=== PATIENT | female | born 1990 | race Caucasian/White ===

== ENCOUNTER 2017-07-01 15:40 | Emergency (ER) | payer OTHER ==
[2017-07-01 16:05] VITALS: BP 105/71
[2017-07-01] MEDS ORDERED: Sodium Chloride 0.9% 1,000 ML IV ONE (16:43)
[2017-07-01] MEDS ORDERED: HYDROmorphone 1 MG/ML Syringe IVPUSH ONE ×2 (16:43→19:39)
--- NOTE | 2017-07-01 16:50 | EDM.PDOC ---
<Pollo Montilla - Last Filed: 07/01/17 16:45> ED HPI GENERAL MEDICAL PROBLEM - General Chief Complaint: [employer] Problem Stated Complaint: SEVERE ABD PAINS, [id number] Time Seen by Provider: 07/01/17 16:40 Source of Information: Reports: Patient History Limitations: Reports: No Limitations - History of Present Illness INITIAL COMMENTS - FREE TEXT/NARRATIVE: This 27 yo female patient reports to the ED with left lower quadrant pain. The patient reports her symptoms started this afternoon at 1430. The patient reports she completed her last period about 2 weeks ago and has had increased vaginal bleeding that started today. The patient reports she has had to change her pad 2 times this afternoon. The patient reports her current pain is a 9 or 10/10 The patient reports she has had the right ovary removed and has had a previous ovarian cyst on her left. The patient has previously seen Dr. Rebollar for her left ovarian cyst. Onset: Today, Sudden Onset Date: 07/01/17 Onset Time: 14:30 Duration: Constant Location: Reports: Abdomen (LLQ) Quality: Reports: Ache, Sharp, Stabbing Severity: Severe Improves with: Reports: None Worsens with: Reports: None Associated Symptoms: Reports: No Other Symptoms Left Abdomen Pain Score (Numeric/FACES): 10 - Related Data Allergies Allergy/AdvReac Type Severity Reaction Status Date / Time Penicillins Allergy Hives Verified 07/01/17 16:02 Home Meds: Home Meds Venlafaxine [Effexor XR 24 Hr] 75 mg PO DAILY 07/01/17 [History] ED ROS GENERAL - Review of Systems Review Of Systems: ROS reveals no pertinent complaints other than HPI. ED EXAM, GI/ABD - Physical Exam Exam: See Below Exam Limited By: No Limitations General Appearance: Alert, WD/WN, Moderate Distress Eyes: Bilateral: Normal Appearance, EOMI Ears: Normal External Exam, Normal Canal, Hearing Grossly Normal, Normal TMs Nose: Normal Inspection, Normal Mucosa, No Blood Throat/Mouth: Normal Inspection, Normal Lips, Normal Teeth, Normal Gums, Normal Oropharynx, Normal Voice, No Airway Compromise Head: Atraumatic, Normocephalic Neck: Normal Inspection, Supple, Non-Tender, Full Range of Motion Respiratory/Chest: No Respiratory Distress, Lungs Clear, Normal Breath Sounds, No Accessory Muscle Use, Chest Non-Tender Cardiovascular: Normal Peripheral Pulses, Regular Rate, Rhythm, No Edema, No Gallop, No JVD, No Murmur, No Rub GI/Abdominal Exam: Normal Bowel Sounds, Soft, No Organomegaly, No Distention, No Abnormal Bruit, No Mass, Guarding, Tender (LLQ) (Female) Exam: Deferred Rectal (Female) Exam: Deferred Back Exam: Normal Inspection, Full Range of Motion, NT Extremities: Normal Inspection, Normal Range of Motion, Non-Tender, Normal Capillary Refill, No Pedal Edema Neurological: Alert, Oriented, CN II-XII Intact, Normal Cognition, Normal Gait, Normal Reflexes, No Motor/Sensory Deficits Psychiatric: Normal Affect, Normal Mood Skin Exam: Warm, Dry, Intact, Normal Color, No Rash Lymphatic: No Adenopathy Course - Vital Signs Last Recorded V/S: Last Vital Signs Temp 36.1 C 07/01/17 16:00 Pulse 85 07/01/17 16:00 Resp 16 07/01/17 16:00 BP 105/71 07/01/17 16:00 Pulse Ox 99 07/01/17 16:00 - Orders/Labs/Meds Labs: Laboratory Tests 07/01/17 07/01/17 07/01/17 Range/Units 16:32 16:32 16:32 WBC 5.8 (5.0-10.0) 10^3/uL RBC 4.51 (4.2-5.4) 10^6/uL Hgb 12.9 (12.0-16.0) g/dL Hct 37.6 (37.0-47.0) % MCV 83.4 (80-100) fL MCH 28.6 (27.0-34.0) pg MCHC 34.3 (33.0-35.0) g/dL Plt Count 156 (150-450) 10^3/uL Neut % (Auto) 56.9 (42.2-75.2) % Lymph % (Auto) 24.4 (20.5-50.1) % Posey % (Auto) 13.0 H (2-8) % Eos % (Auto) 5.2 H (1.0-3.0) % Baso % (Auto) 0.5 (0.0-1.0) % Sodium 135 (135-145) mmol/L Potassium 3.5 L (3.6-5.0) mmol/L Chloride 105 (101-111) mmol/L Carbon Dioxide 22.0 (21.0-31.0) mmol/L Anion Gap 11.5 BUN 7 (7-18) mg/dL Creatinine 0.6 (0.6-1.3) mg/dL Est Cr Clr Drug Dosing 156.02 mL/min Estimated GFR (MDRD) > 60 BUN/Creatinine Ratio 11.66 Glucose 95 (74-105) mg/dL Calcium 8.8 (8.4-10.2) mg/dl Total Bilirubin 0.8 (0.2-1.0) mg/dL AST 15 (10-42) IU/L ALT 12 (10-60) IU/L Alkaline Phosphatase 45 (42-121) IU/L Total Protein 6.7 (6.7-8.2) g/dl Albumin 4.2 (3.2-5.5) g/dl Globulin 2.5 Albumin/Globulin Ratio 1.68 HCG, Qual Negative Urine Color (YELLOW) Urine Appearance (CLEAR) Urine pH (5.0-9.0) Ur Specific Half Way (1.005-1.030) Urine Protein (NEGATIVE) Urine Glucose (UA) (NEGATIVE) Urine Ketones (NEGATIVE) Urine Occult Blood (NEGATIVE) Urine Nitrite (NEGATIVE) Urine Bilirubin (NEGATIVE) Urine Urobilinogen (0.2-1.0) mg/dL Ur Leukocyte Esterase (NEGATIVE) Urine RBC /HPF Urine WBC (0-5/HPF) /HPF Ur Epithelial Cells /HPF Amorphous Sediment (0/HPF) /HPF Urine Bacteria (0-FEW/HPF) /HPF Urine Mucus /LPF Urine Opiates Screen (NEGATIVE) Ur Oxycodone Screen (NEGATIVE) Urine Methadone Screen (NEGATIVE) Ur Barbiturates Screen (NEGATIVE) U Tricyclic Antidepress (NEGATIVE) Ur Phencyclidine Scrn (NEGATIVE) Ur Amphetamine Screen (NEGATIVE) U Methamphetamines Scrn (NEGATIVE) Urine MDMA Screen (NEGATIVE) U Benzodiazepines Scrn (NEGATIVE) Urine Cocaine Screen (NEGATIVE) U Marijuana (THC) Screen (NEGATIVE) 07/01/17 07/01/17 Range/Units 18:17 18:17 WBC (5.0-10.0) 10^3/uL RBC (4.2-5.4) 10^6/uL Hgb (12.0-16.0) g/dL Hct (37.0-47.0) % MCV (80-100) fL MCH (27.0-34.0) pg MCHC (33.0-35.0) g/dL Plt Count (150-450) 10^3/uL Neut % (Auto) (42.2-75.2) % Lymph % (Auto) (20.5-50.1) % Posey % (Auto) (2-8) % Eos % (Auto) (1.0-3.0) % Baso % (Auto) (0.0-1.0) % Sodium (135-145) mmol/L Potassium (3.6-5.0) mmol/L Chloride (101-111) mmol/L Carbon Dioxide (21.0-31.0) mmol/L Anion Gap BUN (7-18) mg/dL Creatinine (0.6-1.3) mg/dL Est Cr Clr Drug Dosing mL/min Estimated GFR (MDRD) BUN/Creatinine Ratio Glucose (74-105) mg/dL Calcium (8.4-10.2) mg/dl Total Bilirubin (0.2-1.0) mg/dL AST (10-42) IU/L ALT (10-60) IU/L Alkaline Phosphatase (42-121) IU/L Total Protein (6.7-8.2) g/dl Albumin (3.2-5.5) g/dl Globulin Albumin/Globulin Ratio HCG, Qual Urine Color Yellow (YELLOW) Urine Appearance Cloudy (CLEAR) Urine pH 5.5 (5.0-9.0) Ur Specific Half Way 1.010 (1.005-1.030) Urine Protein Negative (NEGATIVE) Urine Glucose (UA) Negative (NEGATIVE) Urine Ketones Negative (NEGATIVE) Urine Occult Blood Large H (NEGATIVE) Urine Nitrite Negative (NEGATIVE) Urine Bilirubin Negative (NEGATIVE) Urine Urobilinogen 0.2 (0.2-1.0) mg/dL Ur Leukocyte Esterase Negative (NEGATIVE) Urine RBC 5-10 H /HPF Urine WBC 0-5 (0-5/HPF) /HPF Ur Epithelial Cells Moderate H /HPF Amorphous Sediment Few (0/HPF) /HPF Urine Bacteria Few (0-FEW/HPF) /HPF Urine Mucus Rare /LPF Urine Opiates Screen Positive H (NEGATIVE) Ur Oxycodone Screen Negative (NEGATIVE) Urine Methadone Screen Negative (NEGATIVE) Ur Barbiturates Screen Negative (NEGATIVE) U Tricyclic Antidepress Negative (NEGATIVE) Ur Phencyclidine Scrn Negative (NEGATIVE) Ur Amphetamine Screen Negative (NEGATIVE) U Methamphetamines Scrn Negative (NEGATIVE) Urine MDMA Screen Negative (NEGATIVE) U Benzodiazepines Scrn Negative (NEGATIVE) Urine Cocaine Screen Negative (NEGATIVE) U Marijuana (THC) Screen Negative (NEGATIVE) Meds: Medications Discontinued Medications Generic Name Dose Route Start Last Admin Trade Name [place] PRN Reason Stop Dose Admin Hydromorphone HCl 1 mg 07/01/17 16:43 07/01/17 16:55 Dilaudid IVPUSH 07/01/17 16:44 1 mg ONETIME ONE Administration Sodium Chloride 1,000 mls @ 500 mls/hr 07/01/17 16:43 07/01/17 16:56 Normal Saline IV 07/01/17 18:42 500 mls/hr .BOLUS ONE Administration Iopamidol 75 ml 07/01/17 17:56 07/01/17 18:30 Isovue-300 (61%) IVPUSH 07/01/17 17:57 75 ml ONETIME ONE Administration Departure - Departure Disposition: DC/Tfer to [facility] 02 Clinical Impression: Ruptured ovarian cyst - Discharge Information Forms: Interfacility Transfer EMTALA <Dipak Vaughn - Last Filed: 07/01/17 19:38> Course - Re-Assessments/Exams Free Text/Narrative Re-Assessment/Exam: 07/01/17 19:35 re-exam; s/p dilaudid pt still in lot of pain. case discussed with Dr Rebollar who rec' to ER for ULTRASOUND r/o ovarian torsion Dr Chandra ARMANDO-MD accepted transfer. Departure - Departure Time of Disposition: 19:37 Condition: Good
[2017-07-01 16:58] LABS: CHLORIDE,CL 105 mmol/L (101-111); SODIUM,NA 135 mmol/L (135-145)
[2017-07-01] MEDS ORDERED: Iopamidol 612 MG/ML 75 ML Bottle IVPUSH ONE (17:56)
== END 2017-07-01 20:13 ==
LOC: DL.ED 15:40
DX: N83.202 Unspecified ovarian cyst, left side (principal); Z88.0 Allergy status to penicillin; Z79.899 Other long term (current) drug therapy
CPT/HCPCS: 36415; 74177; 80053; 80305; 81001; 84703; 85025; 96365; 96366; 96375; 96376; 99284; J1170; J7030; Q9967

== ENCOUNTER 2022-05-02 03:43 | Emergency (ER) | payer OTHER ==
[2022-05-02 04:16] VITALS: BP 109/78; PULSE 92
[2022-05-02] MEDS ORDERED: Sodium Chloride 0.9% 1,000 ML IV ONE (04:16)
[2022-05-02 05:52] LABS: ANION GAP 12.4 mEq/L (7-13)
[2022-05-02] MEDS ORDERED: Iopamidol 612 MG/ML 100 ML Bottle IVPUSH ONE (06:41)
[2022-05-02] MEDS ORDERED: Ondansetron 4 MG Tab.DIS PO ONE (08:53)
[2022-05-02] MEDS ORDERED: Ketorolac 30 MG/ML SDV IM ONE (08:53)
== END 2022-05-02 09:56 | disposition home or self-care (01) ==
LOC: DL.ED 03:43
DX: N83.202 Unspecified ovarian cyst, left side (principal); F17.210 Nicotine dependence, cigarettes, uncomplicated; Z88.0 Allergy status to penicillin
CPT/HCPCS: 36415; 74177; 76830; 76856; 80053; 81003; 83690; 83735; 85025; 93005; 96372; 99284; A9270; J1885; J7030; Q9967

== ENCOUNTER 2022-08-05 08:29 | Emergency (ER) | payer OTHER ==
[2022-08-05 08:55] VITALS: BP 99/66; PULSE 103
[2022-08-05] MEDS ORDERED: Sodium Chloride 0.9% 1,000 ML IV ONE (09:02)
[2022-08-05] MEDS ORDERED: Ondansetron 4 MG/2 ML SDV IVPUSH ONE (09:02)
[2022-08-05 09:35] LABS: CHLORIDE,CL 101 mmol/L (98-107); SODIUM,NA 138 mmol/L (136-145)
[2022-08-05 09:37] LABS: ESTIMATED GFR 98 mL/min (>=60)
[2022-08-05] MEDS ORDERED: Magnesium Sulfate/Water 2 GM in Premix Bag 1 BAG IV ONE (09:41)
[2022-08-05] MEDS ORDERED: Iopamidol 612 MG/ML 100 ML Bottle IVPUSH ONE (10:24)
[2022-08-05 11:24] LABS: AMPHETAMINES,URINE NEGATIVE (NEGATIVE); BARBITURATES,URINE NEGATIVE (NEGATIVE); BENZODIAZEPINE,URINE NEGATIVE (NEGATIVE); MDMA (ECSTASY), URINE NEGATIVE (NEGATIVE); METHADONE,URINE NEGATIVE (NEGATIVE); METHAMPHETAMINES,URINE NEGATIVE (NEGATIVE); OPIATES,URINE NEGATIVE (NEGATIVE); OXYCODONE,URINE NEGATIVE (NEGATIVE); PHENCYCLIDINE,URINE NEGATIVE (NEGATIVE); TCA,URINE NEGATIVE (NEGATIVE)
== END 2022-08-05 12:07 | disposition home or self-care (01) ==
LOC: DL.ED 08:29
DX: R10.32 Left lower quadrant pain (principal); R55 Syncope and collapse; R19.7 Diarrhea, unspecified; E83.42 Hypomagnesemia; E05.90 Thyrotoxicosis, unspecified without thyrotoxic crisis or storm; Z72.0 Tobacco use; Z88.0 Allergy status to penicillin; Z90.722 Acquired absence of ovaries, bilateral; Z90.710 Acquired absence of both cervix and uterus
CPT/HCPCS: 36415; 74177; 80053; 80305; 80307; 81001; 82150; 83605; 83690; 83735; 84145; 85025; 86140; 96361; 96365; 96375; 99284; J2405; J3475; J7030; Q9967

== ENCOUNTER 2023-04-21 17:10 | Emergency (ER) | payer OTHER ==
[2023-04-21 17:49] VITALS: BP 110/80; PULSE 83
[2023-04-21] MEDS ORDERED: Bacitracin Oint 1 GM U/D Packet TOP ONE (18:01)
[2023-04-21] MEDS ORDERED: Take Home: Doxycycline 100 MG Cap, 4 Cap Pack PO ONE (18:01)
== END 2023-04-21 18:20 | disposition home or self-care (01) ==
LOC: DL.ED 17:10
DX: S90.425A Blister (nonthermal), left lesser toe(s), initial encounter (principal); S90.122A Contusion of left lesser toe(s) without damage to nail, initial encounter; Z88.0 Allergy status to penicillin; W20.8XXA Other cause of strike by thrown, projected or falling object, initial encounter
CPT/HCPCS: 73660-LT; 99282; 99283; A9270-GY

== ENCOUNTER 2024-07-07 08:50 | Emergency (ER) | payer OTHER ==
[2024-07-07 09:07] VITALS: BP 138/90; PULSE 88
[2024-07-07] MEDS: Bacitracin Oint 1 GM U/D Packet TOP ONE (09:13)
== END 2024-07-07 09:20 | disposition home or self-care (01) ==
LOC: DL.ED 08:50
DX: S00.81XA Abrasion of other part of head, initial encounter (principal); Z88.0 Allergy status to penicillin; Z79.810 Long term (current) use of selective estrogen receptor modulators (SERMs); W55.03XA Scratched by cat, initial encounter
CPT/HCPCS: 99282; A9270-GY

== ENCOUNTER 2025-08-02 18:36 | Emergency (ER) | payer OTHER ==
[2025-08-02 18:50] VITALS: BP 115/81; PULSE 88
== END 2025-08-02 19:42 | disposition home or self-care (01) ==
LOC: DL.ED 18:36
DX: S69.91XA Unspecified injury of right wrist, hand and finger(s), initial encounter (principal); Z88.0 Allergy status to penicillin; Z86.16 Personal history of COVID-19; F17.210 Nicotine dependence, cigarettes, uncomplicated; X50.1XXA Overexertion from prolonged static or awkward postures, initial encounter; Y93.89 Activity, other specified
CPT/HCPCS: 29125; 73140-F9; 99282; 99283-25